=== PATIENT | female | born 1965 | race Two or more races ===

== ENCOUNTER 2018-06-13 16:21 | Outpatient (CLI) | payer BC | END 2018-06-13 23:59 | disposition home or self-care (01) | LOC: LAB 16:21 | PROVIDERS: ATTEND Family Medicine | DX: Z12.2 Encounter for screening for malignant neoplasm of respiratory organs (principal); Z12.4 Encounter for screening for malignant neoplasm of cervix; Z11.3 Encounter for screening for infections with a predominantly sexual mode of transmission; F17.210 Nicotine dependence, cigarettes, uncomplicated | CPT/HCPCS: 36415; 71046; 88142 ==

== ENCOUNTER 2018-07-10 11:35 | Outpatient (CLI) | payer BC | END 2018-07-10 23:59 | disposition home or self-care (01) | LOC: RAD 11:35 | PROVIDERS: ATTEND Family Medicine | DX: M25.512 Pain in left shoulder (principal); M25.522 Pain in left elbow | CPT/HCPCS: 73030-TC; 73070-TC ==

== ENCOUNTER 2018-08-14 09:08 | Outpatient (CLI) | payer BC ==
[2018-08-14] MEDS ORDERED: CT SWABBABLE VALVE TRANS SET 1 EA INFUS.SET MC ONE (09:24)
[2018-08-14] MEDS ORDERED: IV NS 0.9% 250 ML IV ONE (09:24)
[2018-08-14] MEDS ORDERED: IOHEXOL-300 100 ML VIAL IV ONE (09:24)
== END 2018-08-14 23:59 | disposition home or self-care (01) ==
LOC: CT 09:08
PROVIDERS: ATTEND Family Medicine
DX: R31.9 Hematuria, unspecified (principal); K80.20 Calculus of gallbladder without cholecystitis without obstruction; N85.2 Hypertrophy of uterus
CPT/HCPCS: 74178; J7050; Q9967

== ENCOUNTER 2019-08-29 08:48 | Outpatient (CLI) | payer BC | END 2019-08-29 23:59 | disposition home or self-care (01) | LOC: RAD 08:48 | PROVIDERS: ATTEND Family Medicine | DX: F17.210 Nicotine dependence, cigarettes, uncomplicated (principal) | CPT/HCPCS: 71046 ==

== ENCOUNTER 2020-01-28 09:27 | Outpatient (CLI) | payer BC ==
[2020-01-28 10:26] LABS: BASOPHILS % (AUTO) 0.5 % (0.0-2.0); EOSINOPHILS % (AUTO) 2.8 % (0.0-6.0); HEMATOCRIT 43 % (33-45); LYMPHOCYTES # (AUTO) 1.2 /CMM (0.8-4.8); LYMPHOCYTES % (AUTO) 20.4 % (20.0-44.0); MEAN CORPUSCULAR HGB CONC 33 g/dl (31.0-36.0); MEAN CORPUSCULAR VOLUME 89 fL (82-100); MONOCYTES # (AUTO) 0.4 /CMM (0.1-1.30); NEUTROPHILS # (AUTO) 3.9 /CMM (1.8-8.9); NEUTROPHILS % (AUTO) 69.3 % (43.0-81.0); PLATELET COUNT (AUTO) 247 /CMM (150-450); WHITE BLOOD COUNT (AUTO) 5.7 K/uL (4.3-11.0)
[2020-01-28 12:35] LABS: ALBUMIN 3.9 g/dL (3.4-5.0); BILIRUBIN,TOTAL 0.3 mg/dL (0.2-1.0); CALCIUM, SERUM 8.2 mg/dL (8.5-10.1); CREATININE 0.7 mg/dL (0.6-1.3); POTASSIUM 3.7 mmol/L (3.5-5.1); TOTAL PROTEIN, SERUM 7.4 g/dL (6.4-8.2)
[2020-01-28 12:59] LABS: C-REACTIVE PROTEIN 0.4 mg/dL (0.0-0.9)
[2020-01-29 08:16] LABS: FOLIC ACID 14.3 ng/mL (>3.0); THYROID PEROXIDASE (TPO) AB <9 IU/mL (0-34)
== END 2020-01-28 23:59 | disposition home or self-care (01) ==
LOC: LAB 09:27
PROVIDERS: ATTEND Family Medicine
DX: E55.9 Vitamin D deficiency, unspecified (principal); Z85.850 Personal history of malignant neoplasm of thyroid
CPT/HCPCS: 36415; 80053-TC; 80061-TC; 82728-TC; 83540-TC; 85025-TC; 85652-TC; 86140-TC; 86376; 86800

== ENCOUNTER 2020-01-29 09:49 | Outpatient (CLI) | payer BC ==
[2020-01-29] MEDS ORDERED: GADOTERIDOL 279.3 MG/ML VIAL IV ONE (09:50)
== END 2020-01-29 23:59 | disposition home or self-care (01) ==
LOC: MRI 09:49
PROVIDERS: ATTEND Family Medicine
DX: J32.0 Chronic maxillary sinusitis (principal); Z85.850 Personal history of malignant neoplasm of thyroid
CPT/HCPCS: 70542; A9579

== ENCOUNTER 2020-10-27 11:18 | Outpatient (CLI) | payer BC ==
[2020-10-27 11:46] LABS: BASOPHILS % (AUTO) 0.5 % (0.0-2.0); EOSINOPHILS % (AUTO) 2.1 % (0.0-6.0); HEMATOCRIT 42 % (33-45); HEMOGLOBIN 13.8 g/dL (11.5-14.8); LYMPHOCYTES # (AUTO) 1.4 /CMM (0.8-4.8); LYMPHOCYTES % (AUTO) 20.1 % (20.0-44.0); MEAN CORPUSCULAR HGB CONC 33 g/dl (31.0-36.0); MEAN CORPUSCULAR VOLUME 90 fL (82-100); MONOCYTES # (AUTO) 0.5 /CMM (0.1-1.30); MONOCYTES % (AUTO) 6.6 % (2.0-12.0); NEUTROPHILS # (AUTO) 4.9 /CMM (1.8-8.9); NEUTROPHILS % (AUTO) 70.7 % (43.0-81.0); PLATELET COUNT (AUTO) 266 /CMM (150-450); RED BLOOD CELL COUNT(AUTO) 4.67 MIL/uL (4.0-5.2); WHITE BLOOD COUNT (AUTO) 6.9 K/uL (4.3-11.0)
[2020-10-27 11:50] LABS: BILIRUBIN,URINE NEGATIVE (NEGATIVE); LEUKOCYTE ESTERASE ,URINE NEGATIVE (NEGATIVE); NITRITE, URINE NEGATIVE (NEGATIVE); PROTEIN,URINE NEGATIVE (NEGATIVE); UGLUCOSE NEGATIVE (NEGATIVE); UROBILINOGEN,URINE 0.2 EU/dL (0.2)
[2020-10-27 11:57] LABS: COLOR,URINE STRAW (YELLOW)
[2020-10-27 12:53] LABS: ALBUMIN 3.8 g/dL (3.4-5.0); BILIRUBIN,TOTAL 0.2 mg/dL (0.2-1.0); CALCIUM, SERUM 8.3 mg/dL (8.5-10.1); CREATININE 0.7 mg/dL (0.6-1.3); POTASSIUM 4.2 mmol/L (3.5-5.1); THYROID STIMULATING HORMONE 4.13 uIU/mL (0.358-3.74); TOTAL PROTEIN, SERUM 7.6 g/dL (6.4-8.2)
[2020-10-27 13:27] LABS: BACTERIA,URINE Rare /HPF (None Seen); RBC,URINE 0-3 /HPF (0-2); SQUAMOUS EPITHELIAL CELL,UR Few /HPF (None Seen); WBC,URINE 0-2 /HPF (0-3)
[2020-10-28 06:06] LABS: T3, FREE 2.6 pg/mL (2.0-4.4)
== END 2020-10-27 23:59 | disposition home or self-care (01) ==
LOC: LAB 11:18
PROVIDERS: ATTEND Family Medicine
DX: E03.9 Hypothyroidism, unspecified (principal); E55.9 Vitamin D deficiency, unspecified; E78.2 Mixed hyperlipidemia; Z79.899 Other long term (current) drug therapy
CPT/HCPCS: 36415; 80053-TC; 80061-TC; 81001; 82306; 84439-TC; 84443-TC; 84481; 85025-TC

== ENCOUNTER 2020-10-30 08:46 | Outpatient (CLI) | payer BC | END 2020-10-30 23:59 | disposition home or self-care (01) | LOC: CT 08:46 | PROVIDERS: ATTEND Family Medicine | DX: G31.9 Degenerative disease of nervous system, unspecified (principal); M79.604 Pain in right leg | CPT/HCPCS: 70450-TC ==

== ENCOUNTER 2020-12-19 08:28 | Outpatient (CLI) | payer BC | END 2020-12-19 23:59 | disposition home or self-care (01) | LOC: US 08:28 | PROVIDERS: ATTEND Family Medicine | DX: D25.1 Intramural leiomyoma of uterus (principal) | CPT/HCPCS: 76856-TC ==